=== PATIENT | male | born 1985 | race Two or more races ===

== ENCOUNTER 2018-12-02 21:40 | Emergency (ER) | payer OTHER ==
[2018-12-02 21:46] VITALS: TEMP 98.3; BMI 31.1
[2018-12-02 22:00] VITALS: BP 185/135; PULSE 116
--- NOTE | 2018-12-02 22:02 | PDOC ---
History of Present Illness - General Chief Complaint: Pain Stated Complaint: LT CALF PAIN History Source: Patient Exam Limitations: No Limitations - History of Present Illness Initial Comments: 12/04/18 19:22 Assessment and plan: This is a 33-year-old male who comes in complaining of playing basketball when he felt a pop in his posterior calf area. Patient said he is able to bear weight and ambulate however he is having discomfort in his calf's immediately post the incident. Patient denies history of similar incidents in the past. Patient is otherwise healthy and denies any other complaints. Allergies: as per nursing notes Past Medical History: none Social history: Lives with family. No smoking. No alcohol. No illicit drugs. Surgical history: None General: No fevers or chills, no weakness, no weight loss HEENT: No change in vision. No sore throat,. No ear pain CardioVascular: no chest discomfort. No shortness of breath Respiratory:No cough, or wheezing. Gastrointestinal: no nausea, vomiting, diarrhea or constipation, No rectal bleeding Genitourinary: No dysuria, hematuria, or frequency Musculoskeletal: Left calf pain as per history of present illness Neurologic: No headache, vertigo, dizziness or loss of consciousness Psychiatric: nor depression Skin: No rashes or easy bruising Endocrine: no increased thirst or abnormal weight change Allergic: no skin or latex allergy All other systems reviewed and normal GENERAL: The patient is awake, alert, and fully oriented, in no acute distress. HEAD: Normal with no signs of trauma. EYES: Pupils equal, round and reactive to light, extraocular movements intact, sclera anicteric, conjunctiva clear. EXTREMITIES:atraumatic, Normal range of motion, no edema. There is a small amount of swelling in the superior posterior calf area with some tenderness on palpation. There is no ecchymosis and neurovascular is intact. NEUROLOGICAL: Normal speech, normal gait. PSYCH: Normal mood, normal affect. SKIN: Warm, Dry, normal turgor, no rashes or lesions noted. Assessment and plan : This a 33-year-old male with a muscle strain of his calf muscle. Patient likely has a small tear of the calf muscle. Patient given Sagar wrap and Motrin and referred to orthopedist for follow-up. Patient discharged Past History - Past Medical History Allergies/Adverse Reactions: Allergies Allergy/AdvReac Type Severity Reaction Status Date / Time No Known Allergies Allergy Unverified 12/02/18 21:42 Home Medications: Ambulatory Orders Lisinopril 10 mg PO DAILY 12/02/18 COPD: No HTN: Yes - Suicide/Smoking/Psychosocial Hx Smoking History: Never smoked *Physical Exam - Vital Signs Last Vital Signs Temp Pulse Resp BP Pulse Ox 98.3 F 116 H 16 185/135 H 99 12/02/18 21:43 12/02/18 21:54 12/02/18 21:43 12/02/18 21:54 12/02/18 21:43 *DC/Admit/Observation/Transfer Diagnosis at time of Disposition: Strain of calf muscle Qualifiers: Encounter type: initial encounter Laterality: left Qualified Code(s): S86.812A - Strain of other muscle(s) and tendon(s) at lower leg level, left leg, initial encounter - Discharge Dispostion Disposition: HOME Condition at time of disposition: Stable Decision to Admit order: No - Referrals Referrals: Loi Turner MD [Staff Physician] - - Patient Instructions Additional Instructions: Take Tylenol as needed for pain, Sagar wrap the area to give it some compression and ice it 20 minutes at a time 3 times a day for the next 3 days, Call the orthopedist on Tuesday morning and get an appointment to follow-up on Tuesday, Return to the emergency department immediately with ANY new, persistent or worsening symptoms. Continue any medications as previously prescribed by your physician. You should follow up with your primary doctor as soon as possible regarding today's emergency department visit. . Please make sure your doctor reviews the results of your emergency evaluation. Thank you for coming to the Emergency Department today for your care. It was a pleasure to see you today. Please note that your evaluation is INCOMPLETE until you follow-up with your doctor. - Post Discharge Activity Forms/Work/School Notes: Back to Work
== END 2018-12-02 22:04 | disposition home or self-care (01) ==
LOC: FER 21:40
DX: S86.812A Strain of other muscle(s) and tendon(s) at lower leg level, left leg, initial encounter (principal); X58.XXXA Exposure to other specified factors, initial encounter; Y93.67 Activity, basketball; Y92.310 Basketball court as the place of occurrence of the external cause; I10 Essential (primary) hypertension
CPT/HCPCS: 99282-25